=== PATIENT | male | born 1980 | race Caucasian/White ===

== ENCOUNTER 2023-04-18 17:37 | Emergency (ER) | payer OTHER, SELFPAY ==
[2023-04-18 17:41] VITALS: BP 104/57; PULSE 82; RESP 20; TEMP 37; O2SAT 98; BMI 27.6
--- NOTE | 2023-04-18 17:50 | DI.RAD.S_ITS ---
PROCEDURE: XR HAND RT MIN 3V INDICATIONS: Trailer lock fell and pinched right hand. TECHNIQUE: 3 views of the hand(s) acquired. COMPARISON: None. FINDINGS: Bones: No fractures or dislocations. Carpal bones are normally aligned. No suspicious bony lesions. Soft tissues: No suspicious soft tissue calcifications. IMPRESSION: No acute fracture. No osseous lesion. If symptoms and/or clinical suspicion for pathology persist, further assessment with repeat, or advanced imaging (e.g., CT, MRI, or bone scan) may be helpful for further assessment. Dictated by: Sam Stallings M.D. on 04/18/2023 at 18:10 Approved by: Sam Stallings M.D. on 04/18/2023 at 18:11
[2023-04-18] MEDS: LIDOCAINE 1% (PF) 5 ML INJ (18:24)
[2023-04-18] MEDS: TET,DIPH,PERTUSS(ACELL),VAC/PF 0.5 ML SYRINGE IM (18:25)
[2023-04-18 18:51] VITALS: BP 105/64; PULSE 70; O2SAT 97
--- NOTE | 2023-04-18 19:13 | ED.UPPEXIN ---
HPI - Extremity Injury (Upper) <Darrell Valdovinos PA-C - Last Filed: 04/18/23 19:19> General Chief Complaint: Extremity Injury, Upper Stated Complaint: Hand pinched by trailer lock Time Seen by Provider: 04/18/23 18:18 Source: patient Mode of arrival: Ambulatory History of Present Illness HPI narrative: 42-year-old male presents to the ED status post a right hand injury sustained just prior to arrival. Patient accidentally injured his right hand when he was trying to hook a trailer to a truck and trailer log fell onto the right hand. Patient denies numbness, tingling, weakness. Tetanus status is unknown. Patient took 1 g of Tylenol. Bleeding is controlled with pressure. Related Data Allergies Allergy/AdvReac Type Severity Reaction Status Date / Time No Known Drug Allergies Allergy Verified 04/18/23 17:49 Review of Systems <Darrell Valdovinos PA-C - Last Filed: 04/18/23 19:19> Review of Systems ROS Unobtainable: All systems reviewed & are unremarkable except as noted in HPI and below Constitutional Constitutional: Denies chills, Denies fatigue, Denies fever(s), Denies frequent falls, Denies lethargy and Denies weakness Eyes Eyes: Denies change in vision, Denies eye discharge, Denies irritation and Denies loss of vision ENT Ears, Nose, Mouth, and Throat: Denies change in voice, Denies dizziness, Denies neck pain, Denies sore throat and Denies throat swelling Cardiovascular Cardiovascular: Denies chest pain, Denies irregular heart rhythm, Denies lightheadedness, Denies palpitations, Denies dyspnea, Denies dyspnea on exertion and Denies orthopnea Respiratory Respiratory: Denies cough, Denies dyspnea, Denies dyspnea on exertion and Denies wheezing Gastrointestinal Gastrointestinal: Denies abdominal pain, Denies change in bowel habits, Denies diarrhea, Denies nausea and Denies vomiting Genitourinary Genitourinary: Denies hematuria, Denies flank pain, Denies urinary incontinence and Denies urinary urgency Musculoskeletal Musculoskeletal: Denies back pain, Denies muscle weakness, Denies neck pain, Denies numbness and Denies tingling Integumentary/Breasts Skin/Breast: Denies pruritus, Denies erythema, Denies rash and Reports wounds Neurologic Neurologic: Denies behavioral changes, Denies confusion, Denies dizziness, Denies frequent falls, Denies loss of vision, Denies numbness, Denies tingling and Denies weakness Psychiatric Psychiatric: Denies anxiety, Denies behavioral changes, Denies confusion, Denies depression, Denies homicidal ideation and Denies suicidal ideation Endocrine Endocrine: Denies fatigue, Denies flushing and Denies palpitations Hematologic/Lymphatic Hematologic/Lymphatic: Denies easy bruising Allergic/Immunologic Allergic/Immunologic: Denies urticaria, Denies throat swelling and Denies wheezing Patient History <Darrell Valdovinos PA-C - Last Filed: 04/18/23 19:19> Social History Smoking Status: Former smoker Smoking Status: Former smoker alcohol intake frequency: 0-2 drinks per day Alcohol type: beer Substance Use Type: marijuana Exam <Darrell Valdovinos PA-C - Last Filed: 04/18/23 19:19> Narrative Exam Narrative: Const General:?cooperative, healthy appearing and comfortable [facility] Head:?normal to inspection Ears:?hearing grossly normal bilaterally Nose:?external nose normal Face and sinus:?normal facial exam and sinuses nontender Mouth:?oral mucosae normal Throat:?posterior oropharynx normal Eyes General:?appearance normal, both eyes and all related structures Neck Neck:?normal visual inspection and no lymphadenopathy noted Resp Effort & Inspection:?normal respiratory effort Auscultation:?clear to auscultation bilaterally Cardio Rate:?regular rate Rhythm:?regular rhythm Integumentary There is a 1.5 cm laceration to the dorsal aspect of the right hand. Bleeding is controlled with pressure. No deeper structures visualized. Full range of motion. Strength and sensation is intact. Patient is neurovascularly intact. Neuro General:?patient alert, patient awake and patient oriented x3 Initial Vital Signs Initial Vital Signs: Vital Signs Temperature 98.6 F 04/18/23 17:41 Pulse Rate 82 04/18/23 17:41 Respiratory Rate 20 04/18/23 17:41 Blood Pressure 104/57 L 04/18/23 17:41 Pulse Oximetry 98 04/18/23 17:41 Oxygen Delivery Method Room Air 04/18/23 17:41 <Kerri Keenan DO - Last Filed: 04/18/23 22:33> Initial Vital Signs Initial Vital Signs: Vital Signs Temperature 98.6 F 04/18/23 17:41 Pulse Rate 82 04/18/23 17:41 Respiratory Rate 20 04/18/23 17:41 Blood Pressure 104/57 L 04/18/23 17:41 Pulse Oximetry 98 04/18/23 17:41 Oxygen Delivery Method Room Air 04/18/23 17:41 Procedures <NOMI Riddle Last Filed: 04/18/23 19:19> Laceration Repair Laceration 1: Site: hand Side (If applicable): right Size (cm): 1.5 Description: linear and flap Depth: simple, single layer Local Anesthetic: lidocaine 1% Amount of anesthesia used (mL): 0.5 Pre-repair: wound explored, irrigated extensively and deep structures intact Skin layer closed with: vicryl Skin layer suture size: 5-0 Number of sutures: 3 Technique: simple, interrupted and other (flap suture) Course <NOMI Riddle Last Filed: 04/18/23 19:19> Orders Ordered: ED Orders 04/18/23 17:50 XR hand RT min 3V Stat Discontinued Medications Diphtheria/Tetanus/Acell Pertussis (Tet,Diph,Pertuss(Acell),Vac/Pf 0.5 Ml Syringe) 0.5 ml IM .ONCE ONE Stop: 04/18/23 18:19 Last Admin: 04/18/23 18:25 Dose: 0.5 ml Documented By: DINO Lidocaine HCl (Lidocaine 1% (Pf) 5 Ml) 5 ml INJ NOW ONE Stop: 04/18/23 18:21 Last Admin: 04/18/23 18:24 Dose: 5 ml Documented By: SB Vital Signs Vital signs: Vital Signs - 8 hr 04/18/23 17:41 04/18/23 18:51 Temperature 98.6 F Pulse Rate 82 70 Respiratory Rate 20 Blood Pressure 104/57 L 105/64 Pulse Oximetry 98 97 Oxygen Delivery Method Room Air Room Air <Kerri Keenan DO - Last Filed: 04/18/23 22:33> Orders Ordered: ED Orders 04/18/23 17:50 XR hand RT min 3V Stat Discontinued Medications Diphtheria/Tetanus/Acell Pertussis (Tet,Diph,Pertuss(Acell),Vac/Pf 0.5 Ml Syringe) 0.5 ml IM .ONCE ONE Stop: 04/18/23 18:19 Last Admin: 04/18/23 18:25 Dose: 0.5 ml Documented By: DINO Lidocaine HCl (Lidocaine 1% (Pf) 5 Ml) 5 ml INJ NOW ONE Stop: 04/18/23 18:21 Last Admin: 04/18/23 18:24 Dose: 5 ml Documented By: DINO Vital Signs Vital signs: Vital Signs - 8 hr 04/18/23 17:41 04/18/23 18:51 Temperature 98.6 F Pulse Rate 82 70 Respiratory Rate 20 Blood Pressure 104/57 L 105/64 Pulse Oximetry 98 97 Oxygen Delivery Method Room Air Room Air MDM - Extremity Injury (Upper) <Darrell Valdovinos PA-C - Last Filed: 04/18/23 19:19> MDM Narrative Medical decision making narrative: 42-year-old male presents to the ED status post a right hand injury sustained just prior to arrival. Concern for fracture/dislocation versus laceration versus other. X-ray was obtained which did not show any acute findings. Laceration was sutured with 3 sutures. Sutures will need to be removed. Wound care instructions, suture removal instructions, signs of infection discussed with patient. ED return precautions were discussed with patient. Patient verbalized understanding. Medical records reviewed: Yes Discharge Plan Departure Patient Disposition: Home Clinical Impression: Laceration Instructions: DI for Laceration Repair Activity Restrictions/Additional Instructions: You were evaluated in the ED today for a hand injury. Your x-ray was normal. Your laceration was repaired with 3 sutures. The sutures will need to come out in 7-10 days. You may return to the ED, go to your PCP, or go to a urgent care clinic for suture removal. Please watch for signs of infection including worsening pain, swelling, redness, discharge, warmth. Return to the ED if you note any signs of infection. Please keep the wound clean and dry for the 1st 24 hours, after which you can wash gently with soap and water. Please do not keep any wet dressings on your hand for any length of time. Your tetanus was updated today in the ED, which is good for the next 10 years. Stand Alone Forms: Patient Portal/API <Kerri Keenan DO - Last Filed: 04/18/23 22:33> Cosign ED Attending Yosiature Attestation: I was immediately available in the department for consultation. Documentation has been reviewed.
== END 2023-04-18 18:53 | disposition home or self-care (01) ==
PROVIDERS: Emergency Provider Student in an Organized Health Care Education/Training Program
DX: S61.411A Laceration without foreign body of right hand, initial encounter (principal); W26.9XXA Contact with unspecified sharp object(s), initial encounter; Z23 Encounter for immunization
CPT/HCPCS: 12001; 73130; 90471; 99283; 99284; 90715

== ENCOUNTER 2024-12-26 16:15 | Emergency (ER) | payer OTHER, SELFPAY ==
[2024-12-26] VITALS (12 sets, daily range): BP systolic 111–141; BP diastolic 60–87; PULSE 56–100; RESP 18; TEMP 36.4; O2SAT 91–98; BMI 29.5
--- NOTE | 2024-12-26 16:31 | EKG_ITS ---
[address] [address] Test Date: 2024-12-26 Pat Name: Malachi Olson Department: Room: Gender: Male Interventional Cardiologist: VICTOR M : 1980 Requested By: Order Number: [id number] Reading MD: Reji Holbrook Measurements Intervals [place] Rate: 62 P: 44 GA: 140 QRS: 52 QRSD: 98 T: 66 QT: 386 QTc: 391 Interpretive Statements Sinus rhythm with premature atrial complexes Electronically Signed On 12-28-2024 0:11:44 PDT by Reji Holbrook
[2024-12-26 16:52] LABS: Add Manual Diff / Slide Review NO; Basophils Absolute Auto 100 /uL (0-100); Basophils Percent Auto 0.5 % (0-2); Eosinophils Absolute Auto 0 /uL (0-450); Eosinophils Percent Auto 0.1 % (2-4); Hematocrit 45.4 % (41-53); Lymphocytes Absolute Auto 500 /uL (1100-4500); Lymphocytes Percent Auto 4.3 % (25-40); Mean Corpuscular HGB Conc 35.3 % (30-36); Mean Corpuscular Hemoglobin 30.6 PG (26-34); Mean Corpuscular Volume 86.9 fL (80-100); Monocytes Absolute Auto 500 /uL (0-900); Neutrophils Absolute Auto 10600 /uL (1500-7000); Neutrophils Percent Auto 91.1 % (50-75); Platelet Count 222 X10^3/uL (150-400); Red Blood Cell Count 5.22 X10^6/uL (4.5-5.9); White Blood Cell Count 11.6 X10^3/uL (4.5-11.0)
[2024-12-26 16:57] LABS: Alanine Aminotransferase 38 IU/L (<50); Albumin 4.8 g/dL (3.5-5.0); Albumin Globulin Ratio 1.7 (1.0-2.8); Alkaline Phosphatase 66 U/L (38-126); Aspartate Aminotransferase 29 IU/L (17-59); Bilirubin Total 1.5 mg/dL (0.2-1.3); Blood Urea Nitrogen 10 mg/dL (9-20); Calcium 10.1 mg/dL (8.4-10.2); Carbon Dioxide 23 mmol/L (22-32); Chloride 103 mmol/L (98-107); Estimated Glomerular Filt Rate > 60 mL/min (>60); Globulin 2.9 g/dL (1.7-4.1); Glucose 129 mg/dL (70-99); HEMOLYSIS < 15 (0-50); Lipase 43 U/L (23-300); Potassium 3.9 mmol/L (3.4-5.1); Sodium 138 mmol/L (137-145); Total Protein 7.7 g/dL (6.3-8.2)
[2024-12-26] MEDS: ONDANSETRON 4 MG/2 ML INJ IV (18:07)
--- NOTE | 2024-12-26 18:27 | DI.CT.S_ITS ---
PROCEDURE: CT CHEST ABD PEL W CON INDICATIONS: severe abd pain, distention, onset 1130am TECHNIQUE: After the administration of intravenous contrast, 5 mm thick sections acquired from the lung apices to the symphysis. 5 mm coronal and sagittal reformats were performed, with additional 7 mm MIP reformats through the lungs. For radiation dose reduction, the following was used: automated exposure control, adjustment of mA and/or kV according to patient size. COMPARISON: None. FINDINGS: Image quality: Diagnostic CHEST: Lower Neck: No enlarged lymph nodes. Thyroid: No thyroid nodules which require sonographic follow up, per consensus guidelines. Axillae: No enlarged lymph nodes. Chest Wall: Unremarkable. Lungs and Pleura: No pneumothorax or pleural effusions. No focal consolidation. No septal thickening or nodularity. No suspicious pulmonary nodules requiring follow-up. Heart: Heart size is normal. No pericardial effusion. Thoracic Vessels: The aorta and pulmonary arteries demonstrate normal size. Mediastinum and Donna: No enlarged lymph nodes. Esophagus: No wall thickening. No hiatal hernia. ABDOMEN: Liver: No solid mass. Hepatic steatosis Gallbladder: No radiopaque gallstones or wall thickening. Biliary ducts: No biliary dilation. Pancreas: No ductal dilation. Spleen: Size is within normal limits. Incidental splenule. Adrenal Glands: No adrenal nodules. Kidneys and Ureters: No hydronephrosis. No solid mass. No complex renal cystic lesion which requires follow up. Stomach and Bowel: Normal colonic caliber, without significant wall thickening. No evidence for small bowel obstruction or associated inflammatory changes. Normal appendix. Peritoneum: No abnormal intraperitoneal fluid. No free air. Ventral Wall: There is a fat-containing umbilical hernia without acute inflammation. Abdominal Nodes: No retroperitoneal or mesenteric adenopathy by size criteria. Vessels: Aorta and inferior vena cava are normal in size. PELVIS: Pelvic Organs: Unremarkable. Bladder: No bladder wall thickening, accounting for underdistention. Pelvic Nodes: No enlarged lymph nodes. Miscellaneous: Fat containing left inguinal hernia without acute inflammation. Bones: No aggressive osseous abnormality. Visualized osseous structures appear intact without acute fracture or focal destructive lesion. No acute compression fractures of the imaged spine. IMPRESSION: CT chest, abdomen, and pelvis without acute abnormalities to explain patient's symptoms. Hepatic steatosis. Normal appendix. No evidence for obstructive uropathy. Fat containing umbilical and left inguinal hernia without acute inflammation. Dictated by: Chandrakant Love M.D. on 12/26/2024 at 19:23 Approved by: Chandrakant Love M.D. on 12/26/2024 at 19:31
[2024-12-26] MEDS: methylPREDNISolone 125 MG/2 ML VIAL IV (18:54)
[2024-12-26] MEDS: diphenhydrAMINE 50 MG/ML VIAL 25 MG IV (18:54)
[2024-12-26] MEDS: HYDROMORPHONE 0.5 MG INJ IV ×2 (18:54→19:30)
[2024-12-26] MEDS: SODIUM CHLORIDE 0.9% 1,000 ML 1000 ML IV (19:10)
--- NOTE | 2024-12-26 20:02 | ED_ITS ---
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 today. He has been passing gas, has been trying to have bowel movement and reports only ?rabbit turds?. He made himself vomit which did not help with the abdominal pain. He is not had chest pain, dyspnea, palpitations, describes the pain as 04/26 Related Data Allergies Allergy/AdvReac Type Severity Reaction Status Date / Time No Known Drug Allergies Allergy Verified 12/26/24 16:22 Review of Systems Review of Systems Narrative: Pertinent positive and negative findings as per HPI Patient History Social History Smoking Status: Never smoker Smoking Status: Never smoker alcohol intake frequency: 0-2 drinks per day Alcohol type: beer Exam Initial Vital Signs Initial Vital Signs: Vital Signs Temperature 97.5 F L 12/26/24 16:24 Pulse Rate 66 12/26/24 16:24 Respiratory Rate 18 12/26/24 16:24 Blood Pressure 123/65 12/26/24 16:24 Pulse Oximetry 98 12/26/24 16:24 Oxygen Delivery Method Room Air 12/26/24 16:24 General: Healthy appearing, in obvious pain but Able to give a complete and coherent history. Well-nourished well-developed HEENT: Moist mucous membranes, normal sclera with reactive pupils, Respiratory: Lungs are clear to auscultation, no wheezing no rales no rhonchi. Full and symmetrical air movement Cardiac: Regular rate and rhythm no murmurs no bruits Abdomen: Distended, diffusely tender without rebound or guarding Skin: Warm and dry, no rashes Neurologic: Grossly neurologically intact with no obvious asymmetries or abnormalities Extremities: No trauma, well perfused Psych: Cooperative, appropriate insight and affect Course Orders Ordered: ED Orders 12/26/24 16:23 EKG-12 Lead Stat 12/26/24 16:35 Complete Blood Count AUTO DIFF Stat Comprehensive Metabolic Panel Stat Lipase Stat 12/26/24 18:27 CT chest abd pel w con Stat Hydromorphone HCl (Hydromorphone 0.5 Mg Inj) 0.5 mg IV Q15MIN PRN PRN Reason: Pain, Last Admin: 12/26/24 19:30 Dose: 0.5 mg Documented By: Admin: 12/26/24 18:54 Dose: 0.5 mg Documented By: CALLIE Ondansetron HCl (Ondansetron 4 Mg/2 Ml Inj) 4 mg IV NOW PRN PRN Reason: Nausea And Vomiting Last Admin: 12/26/24 18:07 Dose: 4 mg Documented By: CALLIE Ondansetron HCl (Ondansetron 4 Mg Odt) 4 mg PO NOW PRN PRN Reason: Nausea And Vomiting Discontinued Medications Diphenhydramine HCl (Diphenhydramine 50 Mg/Ml Vial) 25 mg IV NOW ONE Stop: 12/26/24 18:38 Last Admin: 12/26/24 18:54 Dose: 25 mg Documented By: CALLIE Sodium Chloride (Normal Saline 0.9%) 1,000 mls @ 1,000 mls/hr IV BOLUS ONE Stop: 12/26/24 19:26 Last Infusion: 12/26/24 20:03 Dose: Infused Documented By: Admin: 12/26/24 19:10 Dose: 1,000 mls/hr Documented By: CALLIE Methylprednisolone (Methylprednisolone 125 Mg/2 Ml Vial) 125 mg IV NOW ONE Stop: 12/26/24 18:38 Last Admin: 12/26/24 18:54 Dose: 125 mg Documented By: CALLIE Vital Signs Vital signs: Vital Signs - 8 hr 12/26/24 16:24 12/26/24 17:47 12/26/24 17:47 Temperature 97.5 F L Pulse Rate 66 68 Respiratory Rate 18 Blood Pressure 123/65 141/87 H Pulse Oximetry 98 96 Oxygen Delivery Method Room Air 12/26/24 18:00 12/26/24 18:00 12/26/24 18:30 Temperature Pulse Rate 71 56 L Respiratory Rate Blood Pressure 138/78 Pulse Oximetry 94 97 Oxygen Delivery Method Room Air 12/26/24 18:30 12/26/24 19:07 12/26/24 19:30 Temperature Pulse Rate 90 95 H Respiratory Rate Blood Pressure 130/77 Pulse Oximetry 92 92 Oxygen Delivery Method 12/26/24 19:33 12/26/24 19:33 12/26/24 20:00 Temperature Pulse Rate 100 H 92 H Respiratory Rate Blood Pressure 111/71 Pulse Oximetry 92 91 Oxygen Delivery Method 12/26/24 20:30 Temperature Pulse Rate 98 H Respiratory Rate Blood Pressure Pulse Oximetry 91 Oxygen Delivery Method Medical Decision Making Lab Data 12/26/24 16:35 12/26/24 16:35 Labs: Lab Results 12/26/24 Range/Units 16:35 WBC 11.6 H (4.5-11.0) X10^3/uL RBC 5.22 (4.5-5.9) X10^6/uL Hgb 16.0 (13.5-17.5) g/dL Hct 45.4 (41-53) % MCV 86.9 (80-100) fL MCH 30.6 (26-34) PG MCHC 35.3 (30-36) % RDW 13.0 (11.6-14.8) % Plt Count 222 (150-400) X10^3/uL Neut % (Auto) 91.1 H (50-75) % Lymph % (Auto) 4.3 L (25-40) % [place] % (Auto) 4.0 (3-14) % Eos % (Auto) 0.1 L (2-4) % Baso % (Auto) 0.5 (0-2) % Neut # (Auto) 75221 H (4438-9427) /uL Lymph # (Auto) 500 L (9383-1649) /uL [place] # (Auto) 500 (0-900) /uL Eos # (Auto) 0 (0-450) /uL Baso # (Auto) 100 (0-100) /uL Sodium 138 (137-145) mmol/L Potassium 3.9 (3.4-5.1) mmol/L Chloride 103 (98-107) mmol/L Carbon Dioxide 23 (22-32) mmol/L BUN 10 (9-20) mg/dL Creatinine 1.00 (0.66-1.25) mg/dL Estimated GFR > 60 (>60) mL/min BUN/Creatinine Ratio 10.0 (6-22) Glucose 129 H (70-99) mg/dL Calcium 10.1 (8.4-10.2) mg/dL Total Bilirubin 1.5 H (0.2-1.3) mg/dL AST 29 (17-59) IU/L ALT 38 (<50) IU/L Alkaline Phosphatase 66 (38-126) U/L Total Protein 7.7 (6.3-8.2) g/dL Albumin 4.8 (3.5-5.0) g/dL Globulin 2.9 (1.7-4.1) g/dL Albumin/Globulin Ratio 1.7 (1.0-2.8) Lipase 43 (23-300) U/L Urine Dip Bedside Urine Glucose Negative Bedside Urine Bilirubin - Negative Bedside Urine Ketone +/- 5 Urine Specific [place] 1.005 Bedside Urine Occult Blood - Negative Bedside Urine pH 8.5 Bedside Urine Protein - Negative Bedside Urine Urobilinogen - Negative Bedside Urine Nitrite - Negative Bedside Urine Leukocytes - Negative Esterase Point of care testing: Urine Dip Bedside Urine Glucose Negative Bedside Urine Bilirubin - Negative Bedside Urine Ketone +/- 5 Urine Specific [place] 1.005 Bedside Urine Occult Blood - Negative Bedside Urine pH 8.5 Bedside Urine Protein - Negative Bedside Urine Urobilinogen - Negative Bedside Urine Nitrite - Negative Bedside Urine Leukocytes - Negative Esterase Imaging Data CT chest abdomen and pelvis: Radiologist's Impression: PROCEDURE: CT CHEST ABD PEL W CON INDICATIONS: severe abd pain, distention, onset 1130am TECHNIQUE: After the administration of intravenous contrast, 5 mm thick sections acquired from the lung apices to the symphysis. 5 mm coronal and sagittal reformats were performed, with additional 7 mm MIP reformats through the lungs. For radiation dose reduction, the following was used: automated exposure control, adjustment of mA and/or kV according to patient size. COMPARISON: None. FINDINGS: Image quality: Diagnostic CHEST: Lower Neck: No enlarged lymph nodes. Thyroid: No thyroid nodules which require sonographic follow up, per consensus guidelines. Axillae: No enlarged lymph nodes. Chest Wall: Unremarkable. Lungs and Pleura: No pneumothorax or pleural effusions. No focal consolidation. No septal thickening or nodularity. No suspicious pulmonary nodules requiring follow-up. Heart: Heart size is normal. No pericardial effusion. Thoracic Vessels: The aorta and pulmonary arteries demonstrate normal size. Mediastinum and Donna: No enlarged lymph nodes. Esophagus: No wall thickening. No hiatal hernia. ABDOMEN: Liver: No solid mass. Hepatic steatosis Gallbladder: No radiopaque gallstones or wall thickening. Biliary ducts: No biliary dilation. Pancreas: No ductal dilation. Spleen: Size is within normal limits. Incidental splenule. Adrenal Glands: No adrenal nodules. Kidneys and Ureters: No hydronephrosis. No solid mass. No complex renal cystic lesion which requires follow up. Stomach and Bowel: Normal colonic caliber, without significant wall thickening. No evidence for small bowel obstruction or associated inflammatory changes. Normal appendix. Peritoneum: No abnormal intraperitoneal fluid. No free air. Ventral Wall: There is a fat-containing umbilical hernia without acute inflammation. Abdominal Nodes: No retroperitoneal or mesenteric adenopathy by size criteria. Vessels: Aorta and inferior vena cava are normal in size. PELVIS: Pelvic Organs: Unremarkable. Bladder: No bladder wall thickening, accounting for underdistention. Pelvic Nodes: No enlarged lymph nodes. Miscellaneous: Fat containing left inguinal hernia without acute inflammation. Bones: No aggressive osseous abnormality. Visualized osseous structures appear intact without acute fracture or focal destructive lesion. No acute compression fractures of the imaged spine. IMPRESSION: CT chest, abdomen, and pelvis without acute abnormalities to explain patient's symptoms. Hepatic steatosis. Normal appendix. No evidence for obstructive uropathy. Fat containing umbilical and left inguinal hernia without acute inflammation. Dictated by: Chandrakant Love M.D. on 12/26/2024 at 19:23 MDM Narrative Medical decision making narrative: CC: Abdominal pain Complicating co-morbidities: Data collected from: patient Differential considered: Bowel obstruction, appendicitis, diverticulitis Exam documented above, pertinent findings include: Significant abdominal pain with distention, no rebound or guarding Lab Test results independently reviewed as above. Pertinent findings: CBC shows mild leukocytosis at 11.6 with left shift at 91%. No anemia Chemistries are reassuring. Lipase is normal Imaging studies independently reviewed: CT scan does not show acute obstruction, abscess, appendicitis or other explanation for his severe pain Treatments: Zofran, Dilaudid, Solu-Medrol and Benadryl were given due to a history of shellfish allergy and CT contrast given Discussion: 44-year-old gentleman with the acute onset severe abdominal pain and distention at 11:30 a.m. today. Never had similar episodes. White count was slightly elevated, concern was for acute surgical abdomen developing, CT scan did not show any obvious abnormalities. Prior to discharge his belly is definitely more soft, clearly no rebound or guarding. Pain is much better controlled after a dose of Dilaudid IV. Discussed use of MiraLax, enough for bowels to begin moving to see if this alleviates his pain. He has a additional problems clearly reviewed with him need to return for further evaluation. He is safe for discharge Discharge Plan Departure Patient Disposition: Home Clinical Impression: Abdominal pain, Constipation Instructions: DI for Abdominal Pain-Adult, DI for Constipation Activity Restrictions/Additional Instructions: Thank you for coming in today With the amount of pain that you are having, the distention as well as the slightly elevated white blood cell count that we found on blood work, a CT scan of your belly was indicated. Fortunately, there was no sign of bowel obstruction, bowel twisting, appendicitis, diverticulitis or other findings that would explain your severe pain. There was not incidentally appreciated small umbilical hernia and groin hernia with no complications or obstructions associated. I suspect that constipation is playing a role in your pain. I would recommend that you get some MiraLax from the grocery store. The dose is a scoop of white powder filling up the purple lid of the container. Mix that in a glass of water, juice or coffee or tea. If you have not had a bowel movement within 30 minutes repeat and continue until you begin to poop. You can not overdose on this medication. It pulls water into your colon but it is not absorbed into your body. If you have worsening pain after you have had a large bowel movement, developing fevers or new findings you do need to return to the ER. Stand Alone Forms: Patient Portal/API
== END 2024-12-26 21:55 | disposition home or self-care (01) ==
PROVIDERS: Emergency Medicine; Emergency Provider Emergency Medicine
DX: R10.9 Unspecified abdominal pain (principal); K59.00 Constipation, unspecified
CPT/HCPCS: 36415; 71260; 74177; 80053; 81003; 83690; 85025; 93005; 96361; 96374; 96375; 96376; 99284; J1171; J1200; J2405; J2919; Q9967